=== PATIENT | male | born 1980 | race Caucasian/White ===

== ENCOUNTER → 2020-06-29 | Outpatient (CLI) | payer BC ==
[~2020-06-29] VITALS: Ht 172.7 cm; Wt 90.7 kg
[~2020-06-29] MED LIST: REGADENOSON 0.4 MG/5 ML DISP.SYRIN. IV ONE
--- NOTE | 2020-06-29 11:04 | CARD ---
MR#: [id number] Date of Study: 06/29/2020 Ordering Physician: LAINEY NAYLOR, Referring Physician: LAINEY NAYLOR, Tech: Katie Virk TAM APPROVED REPORT EXAM: Two-dimensional and M-mode echocardiogram with Doppler and color Doppler. Other Information Quality : Good INDICATION Chest Pain 2D DIMENSIONS RVDd2.8 (2.9-3.5cm)Left Atrium(2D)2.6 (1.6-4.0cm) IVSd1.0 (0.7-1.1cm)Aortic Root(2D)3.3 (2.0-3.7cm) LVDd4.4 (3.9-5.9cm)LVOT Diameter2.0 (1.8-2.4cm) PWd1.0 (0.7-1.1cm)LVDs2.2 (2.5-4.0cm) FS (%) 30.0 %SV70.0 ml LVEF(%)60.0 (>50%) Aortic Valve AoV Peak Prudencio.114.3cm/sAoV VTI20.1cm AO Peak GR.5.2mmHgLVOT Peak Prudencio.102.1cm/s LVOT VTI 17.01cmAO Mean GR.3mmHg FILEMON (VMAX)2.34zs4ZOK (VTI)2.60cm2 Mitral Valve MV E Lwwnxoff27.1cm/sMV DECEL EEZA135ph MV A Zwsjcvxp07.1cm/sE/A Ratio1.4 Tricuspid Valve TR P. Cgvaimhr953jf/sRAP XILBZKGY2cySh TR Peak Gr.86txQcBIUA61ktLd Pulmonary Vein S1 Hzugpmjx79.5cm/sD2 Rusqveir82.7cm/s LEFT VENTRICLE The left ventricle is normal size. There is normal left ventricular wall thickness. The left ventricu lar systolic function is normal. The Ejection Fraction is 55-60%. There is normal LV segmental wall m otion. The left ventricular diastolic function and filling is normal for age. RIGHT VENTRICLE The right ventricle is normal size. The right ventricular systolic function is normal. ATRIA The left atrium size is normal. The right atrium size is normal. The interatrial septum is intact wit h no evidence for an atrial septal defect or patent foramen ovale as noted on 2-D or Doppler imaging. AORTIC VALVE The aortic valve is normal in structure and function. Doppler and Color Flow revealed no significant aortic regurgitation. There is no significant aortic valvular stenosis. MITRAL VALVE The mitral valve is normal in structure and function. There is no evidence of mitral valve prolapse. There is no mitral valve stenosis. Doppler and Color Flow revealed no mitral valve regurgitation note d. TRICUSPID VALVE The tricuspid valve is normal in structure and function. Doppler and Color Flow revealed no tricuspid valve regurgitation noted. There is no tricuspid valve stenosis. PULMONIC VALVE The pulmonic valve is not well visualized. Doppler and Color Flow revealed no pulmonic valvular regur gitation. There is no pulmonic valvular stenosis. GREAT VESSELS The aortic root is normal in size. The ascending aorta is normal in size. The IVC is normal in size a nd collapses >50% with inspiration. PERICARDIAL EFFUSION There is no evidence of significant pericardial effusion. Critical Notification Critical Value: No <Conclusion> The left ventricular systolic function is normal. The Ejection Fraction is 55-60%. There is normal LV segmental wall motion. There is no evidence of significant pericardial effusion. Signed by : Ede Scott, Electronically Approved : 06/29/2020 11:03:40
--- NOTE | 2020-06-29 12:51 | RAD ---
MR#: [id number] Date of Study: 06/29/2020 Ordering Physician: LAINEY NAYLOR, Referring Physician: DANNY STARK Tech: SP Parson ARRT (Jeremie) (N) APPROVED REPORT Test Type: Pharmacological Stress Nurse/Tech: ODELL Izquierdo/VIVEK Parson Test Indications: CP Cardiac History: Hypertension Medications: See Electronic Medical Record Medical History: See Electronic Medical Record Resting ECG: SR Resting Heart Rate: 83 bpm Resting Blood Pressure: 147/83mmHg Pretest Chest Pain: None Nurse/Tech Notes SR, non-specific ST/T changes @baseline. No significant accute changes with stress. Consent: The procedure was explained to the patient in lay terms. Informed consent was witnessed. Nik eout was entered into [facility]. History and Stress Test performed by SP Parson ARRT (R) (N) Pharm. Details Pharmacologic stress testing was performed using 0.4mg per 5ml of regadenoson given intravenously ove r 7-10 seconds. Stress Symptoms No chest pain or symptoms. POST EXERCISE Reason for Termination: Infusion complete Target HR: No Max HR: 121 bpm 79% of Maximum Predicted HR: 152 bpm Exercise duration: 6 min:sec, Stage Max Blood Pressure: 167/108mmHg Blood Pressure response to exercise: Normal blood pressure response during stress. Chest Pain: No. INTERPRETATION Stress EKG Conclusion: Baseline EKG showed sinus rhythm. No ischemic changes at peak stress. No arr hythmias. Imaging Protocol IMAGE PROTOCOL: Rest Tc-99m/stress Tc-99m 1 day Rest: Stress: Viability: Radiopharm.Tc99m UkpjobzcnOg56k Sestamibi Sxus11xBi 33mCi Img Date 06/29/2020 06/29/2020 Inj-Img Xswh84gbw. 60min. Rest Admin Site:IV - Left AntecubitalAdministrator: SP Parson ARRT (Jeremie)(N) Stress Admin Site: IV - Left AntecubitalAdministrator: Charley Rutledge, NMTCB, ARRT (R)(N) STRESS DATA End Diast. Vol.86.0mlAv. Heart Rate81.0bpm End Syst. Vol.13.0mlCO Index BSA0.0L/min Myocardial Enms349.0gEject. Yncgpntq57.0% Stress Rates Pk. Fill Rate3.64EDV/secLVtime Pk. Fill 139.12msec Pk. Empty Rate5.47ESV/secLVtime Pk. Gzriu684.45msec 3 Pk. Fill1.72EDV/sec Stress Scores Regional WT0.00Summed WT1.00 Regional WM0.00Summed WM0.00 Study quality was good. Left Ventricular size was Normal at Rest and Stress. Lung uptake was . Left Ventricular ejection fraction is 84%. The rest and stress images show normal perfusion, normal contraction and thickening. LV Perf. Quant 17 Seg. SSS2.00 17 Seg. SRS5.00 17 Seg. SDS1.00 Stress Defect Extent (% LAD)0.00Rest Defect Extent (% LAD)0.00Rev. Defect Extent (% LAD)0.00 Stress Defect Extent (% LCX) 12.50Rest Defect Extent (% LCX)5.00Rev. Defect Extent (% LCX)0.00 Stress Defect Extent (% RCA)0.00Rest Defect Extent (% RCA)0.00Rev. Defect Extent (% RCA)0.00 Stress Defect Extent (% TONI)2.20Rest Defect Extent (% TONI)0.90Rev. Defect Extent (% TONI)0.00 Conclusion 1. Regadenoson cardioisotope stress test did not show any evidence of ischemia or infarct. 2. Normal left ventricular systolic function with ejection fraction calculated at 84%. 3. Low risk for cardiac events. Signed by : Ede Scott, Electronically Approved : 06/29/2020 12:51:30
== END ==
LOC: NM 07:33
PROVIDERS: ATTEND Internal Medicine Cardiovascular Disease
DX: I10 Essential (primary) hypertension (principal); R07.9 Chest pain, unspecified
CPT/HCPCS: 78452; 93017; 93306; A9500; J2785